=== PATIENT | male | born 1950 | race Caucasian/White ===

== ENCOUNTER 2018-11-16 16:40 | Emergency (ER) | payer MEDICAID ==
[~2018-11-16] VITALS: Ht 170.2 cm; Wt 76.0 kg
[2018-11-16 17:35] LABS: EOSINOPHILS % 1.7 % (0.0-5.0); HEMATOCRIT. 44.1 % (42.0-52.0); HEMOGLOBIN. 14.8 g/dL (14.0-18.0); LYMPHOCYTES % 34.6 % (20.0-50.0); MEAN CORPUSCULAR HEMOGLOBIN 30.6 pg (28.0-32.0); MEAN CORPUSCULAR VOLUME 91.1 fL (80.0-94.0); MEAN PLATELET VOLUME 11.2 fl (7.4-10.4); NEUTROPHILS % 56.7 % (40.0-76.0); PLATELET 74 x1000/uL (130-400); RED BLOOD CELL COUNT 4.84 mill/uL (4.7-6.1); RED CELL DISTRIBUTION WIDTH 13.8 % (11.6-14.6)
[2018-11-16 17:40] LABS: CHLORIDE 101 mEq/L (98-107)
[2018-11-16 17:50] LABS: BETA HYDROXYBUTYRATE 0.1 mMol/L (0.0-0.3)
[2018-11-16 18:01] LABS: PLATELET ESTIMATE DECREASED
[2018-11-16] MEDS ORDERED: SODIUM CHLORIDE 0.9% 1,000 ML IV ONE (19:38)
[2018-11-16 22:00] VITALS: BP 154/82
== END 2018-11-16 22:27 | disposition home or self-care (01) ==
LOC: ER 16:40
DX: E11.65 Type 2 diabetes mellitus with hyperglycemia (principal); I10 Essential (primary) hypertension
CPT/HCPCS: 36415; 80053; 82010; 82962; 83690; 85025; 96360; 99283; J7030

== ENCOUNTER 2021-05-03 10:53 | Inpatient (IN) | payer MEDICAID ==
[~2021-05-03] VITALS: Ht 144.8 cm; Wt 67.2 kg
[~2021-05-03 10:53] MED LIST: DILT-26 MT; INSU100I28 SQ; METF-414 MT
[2021-05-03 11:49] LABS: BASOPHILS % 0.6 % (0.0-2.0); EOSINOPHILS % 0.9 % (0.0-5.0); HEMATOCRIT. 38.7 % (42.0-52.0); HEMOGLOBIN. 13.1 g/dL (14.0-18.0); LYMPHOCYTES % 15.9 % (20.0-50.0); MEAN CORPUSCULAR HEMOGLOBIN 30.1 pg (28.0-32.0); MEAN CORPUSCULAR VOLUME 89.3 fL (80.0-94.0); MEAN PLATELET VOLUME 11.5 fl (7.4-10.4); MONOCYTES % 6.4 % (2.0-8.0); NEUTROPHILS % 76.2 % (40.0-76.0); PLATELET 95 x1000/uL (130-400); RED BLOOD CELL COUNT 4.33 mill/uL (4.7-6.1); RED CELL DISTRIBUTION WIDTH 12.9 % (11.6-14.6)
[2021-05-03 11:57] LABS: CHLORIDE 102 mEq/L (98-107)
[2021-05-03] MEDS ORDERED: DEXTROSE 50% WATER 50ML SYRINGE IV PRN (17:45)
[2021-05-03] MEDS: INSULIN LISPRO 100 UNITS/ML SUBCUT SCH ×3 (18:20→20:46)
[2021-05-03] MEDS: DILTIAZEM HCL 30MG TABLET PO SCH (19:11)
[2021-05-03] MEDS: BLOOD SUGAR DIAGNOSTIC STRIP TEST SCH (20:44)
[2021-05-03 22:30] VITALS: BP 105/69
[2021-05-04] VITALS: BP 117/74
[2021-05-04 04:00] VITALS: BP 122/71
[2021-05-04] MEDS ORDERED: ASPI-1497 MT (04:36)
[2021-05-04] MEDS ORDERED: ATOR10TA69 MT (04:37)
[2021-05-04] MEDS ORDERED: APIX5TAB MT (04:38)
[2021-05-04] MEDS ORDERED: INFLUENZA VACCINE 05/PF 0.5 ML SYRINGE IM ONE (06:00)
[2021-05-04] MEDS ORDERED: *PATIENT'S OWN MEDICATION STORAGE XX SCH (06:15)
[2021-05-04] MEDS: DILTIAZEM HCL 30MG TABLET PO SCH ×5 (06:16→21:22)
[2021-05-04] MEDS: BLOOD SUGAR DIAGNOSTIC STRIP TEST SCH ×4 (06:22→21:23)
[2021-05-04] MEDS ORDERED: PNEUMOCOCCAL 23-VAL P-SAC VAC 0.5 ML IM ONE (07:00)
[2021-05-04] MEDS: INSULIN LISPRO 100 UNITS/ML SUBCUT SCH ×5 (07:50→21:25)
[2021-05-04 08:00] VITALS: BP 114/64
[2021-05-04] MEDS ORDERED: ACETAMINOPHEN 325MG TABLET PO PRN (10:00)
[2021-05-04] MEDS ORDERED: DIPHENHYDRAMINE 50MG/ML VIAL IV PRN (10:00)
[2021-05-04] MEDS ORDERED: CLONIDINE 0.1MG TABLET PO PRN (10:00)
[2021-05-04] MEDS ORDERED: ENOXAPARIN 60MG/0.6ML SYR SUBCUT SCH (10:00)
[2021-05-04] MEDS ORDERED: ONDANSETRON HCL 4MG/2ML INJ IV PRN (10:00)
[2021-05-04] MEDS ORDERED: IPRATROPIUM/ALBUTEROL 0.5-3(2.5)MG/3ML NEB HHN PRN (10:00)
[2021-05-04 12:00] VITALS: BP 102/64
[2021-05-04 16:00] VITALS: BP 110/65
[2021-05-04 18:24] LABS: CLARITY URINE CLEAR (CLEAR); COLOR URINE YELLOW (YELLOW); KETONES URINE NEGATIVE (NEGATIVE); LEUKOCYTE ESTERASE URINE 1+ (NEGATIVE); NITRITE URINE NEGATIVE (NEGATIVE); OCCULT BLOOD URINE NEGATIVE (NEGATIVE); PROTEIN URINE TRACE (NEGATIVE); SPECIFIC GRAVITY URINE 1.021 (1.005-1.030)
[2021-05-04 18:35] LABS: *AMPHETAMINES SCREEN URINE NEGATIVE (NEGATIVE)
[2021-05-04 18:36] LABS: *BARBITURATES SCREEN URINE NEGATIVE (NEGATIVE); *COCAINE SCREEN URINE NEGATIVE (NEGATIVE); CANNABINOID URINE SCREEN NEGATIVE (NEGATIVE); METHADONE URINE SCREEN NEGATIVE (NEGATIVE); OPIATES URINE SCREEN NEGATIVE (NEGATIVE); PHENCYCLIDINE URINE SCREEN NEGATIVE (NEGATIVE)
[2021-05-04 18:47] LABS: *BENZODIAZEPINES SCREEN URINE NEGATIVE (NEGATIVE)
[2021-05-04 20:00] VITALS: BP 128/78
[2021-05-05] VITALS (7 sets, daily range): BP systolic 97–129; BP diastolic 49–69
[2021-05-05] MEDS: DILTIAZEM HCL 30MG TABLET PO SCH ×3 (05:13→22:00)
[2021-05-05] MEDS: BLOOD SUGAR DIAGNOSTIC STRIP TEST SCH ×4 (07:20→21:00)
[2021-05-05] MEDS: INSULIN LISPRO 100 UNITS/ML SUBCUT SCH ×5 (07:42→22:17)
[2021-05-05 07:44] LABS: BASOPHILS % 1.3 % (0.0-2.0); EOSINOPHILS % 2.3 % (0.0-5.0); HEMATOCRIT. 40.3 % (42.0-52.0); HEMOGLOBIN. 13.5 g/dL (14.0-18.0); LYMPHOCYTES % 30.3 % (20.0-50.0); MEAN CORPUSCULAR HEMOGLOBIN 29.6 pg (28.0-32.0); MEAN CORPUSCULAR VOLUME 88.2 fL (80.0-94.0); MONOCYTES % 7.3 % (2.0-8.0); NEUTROPHILS % 58.8 % (40.0-76.0); PLATELET 97 x1000/uL (130-400); PROTHROMBIN TIME 11.1 sec (9.6-11.0); RED BLOOD CELL COUNT 4.57 mill/uL (4.7-6.1)
[2021-05-05 07:45] LABS: CHLORIDE 105 mEq/L (98-107)
[2021-05-05 07:54] LABS: LDL CHOLESTEROL 78 mg/dL (5-100)
[2021-05-05 07:55] LABS: HDL CHOLESTEROL 52 mg/dL (40-59)
[2021-05-05] MEDS ORDERED: LIDOCAINE HCL 1% 20ML VIAL (Pyxis) INJ ONE (08:52)
[2021-05-05] MEDS ORDERED: HEPARIN 1000 UNITS/ML 10ML ONE (08:52)
[2021-05-05] MEDS ORDERED: IOHEXOL-300 100 ML BOTTLE ONE (08:53)
[2021-05-05] MEDS ORDERED: IODIXANOL 320MG/ML 100 ML BOTTLE IV ONE (08:53)
[2021-05-05] MEDS ORDERED: MIDAZOLAM HCL 2 MG/2 ML VIAL ONE ×2 (08:59→10:47)
[2021-05-05] MEDS ORDERED: FENTANYL CITRATE/PF 50MCG/ML 2ML VIAL ONE (09:00)
[2021-05-05] MEDS ORDERED: ATROPINE SULFATE 1MG/10ML SYR IV PRN (10:00)
[2021-05-05] MEDS ORDERED: ACETAMINOPHEN 325MG TABLET PO PRN (10:00)
[2021-05-05] MEDS ORDERED: NICARDIPINE 100MCG/ML 10ML VIAL (CATH LAB) IV ONE (10:13)
[2021-05-05] MEDS ORDERED: HEPARIN SODIUM 1,000 UNIT/1ML VIAL IV ONE (10:13)
[2021-05-05] MEDS ORDERED: PHENYLEPHRINE 100MCG/ML 10ML VIAL (CATH LAB) IV ONE (10:13)
[2021-05-05] MEDS ORDERED: NITROGLYCERIN 50MCG/ML 10ML VIAL (CATH LAB) IV ONE (10:13)
[2021-05-05] MEDS ORDERED: FENTANYL CITRATE/PF 50MCG/ML 5ML VIAL ONE (10:48)
[2021-05-05] MEDS ORDERED: CHLORHEXIDINE GLUCONATE 4% EXTERNAL USE TOP SCH ×2 (15:00→21:00)
[2021-05-05] MEDS ORDERED: BISACODYL 10MG SUPP PR PRN (21:00)
[2021-05-05] MEDS ORDERED: ASCORBIC ACID 500 MG TABLET PO SCH (21:00)
[2021-05-05] MEDS ORDERED: DOCUSATE SODIUM 100MG CAPSULE PO SCH (21:00)
[2021-05-05] MEDS: ALLOPURINOL 300 MG TABLET PO SCH (22:16)
[2021-05-06] VITALS (53 sets, daily range): BP systolic 92–144; BP diastolic 40–106
[2021-05-06 03:07] LABS: CLARITY URINE CLEAR (CLEAR); COLOR URINE YELLOW (YELLOW); KETONES URINE NEGATIVE (NEGATIVE); LEUKOCYTE ESTERASE URINE 2+ (NEGATIVE); NITRITE URINE NEGATIVE (NEGATIVE); OCCULT BLOOD URINE NEGATIVE (NEGATIVE); PROTEIN URINE NEGATIVE (NEGATIVE); SPECIFIC GRAVITY URINE 1.012 (1.005-1.030); UROBILINOGEN URINE 0.2 E.U./dL (0.2-1.0)
[2021-05-06] MEDS: ALLOPURINOL 300 MG TABLET PO SCH (05:30)
[2021-05-06] MEDS ORDERED: SKIN ADHESIVE 0.7 GM EA TOP ONE (05:34)
[2021-05-06] MEDS ORDERED: POLYMYXIN B SULFATE 500000 UNITS/VIAL ONE (05:35)
[2021-05-06] MEDS ORDERED: THROMBIN (BOVINE) 5000 UNITS/VIAL TOP ONE (05:35)
[2021-05-06] MEDS ORDERED: HEPARIN 1000 UNITS/ML 10ML ONE ×3 (05:36→14:15)
[2021-05-06] MEDS ORDERED: DOPAMINE 400MG/250ML PREMIX 250 ML IV ONE ×2 (05:47→05:48)
[2021-05-06] MEDS: DILTIAZEM HCL 30MG TABLET PO SCH (05:56)
[2021-05-06] MEDS ORDERED: INSULIN REGULAR (DRIP) 100 UNITS in SODIUM CHLORIDE 0.9% 99 ML IV PRN (06:00)
[2021-05-06] MEDS ORDERED: AMINOCAPROIC ACID 5,000 MG in SODIUM CHLORIDE 0.9% 230 ML IV PRN (06:00)
[2021-05-06] MEDS ORDERED: EPINEPHRINE 5 MG in DEXT 5% WATER 245 ML IV PRN (06:00)
[2021-05-06] MEDS ORDERED: DOBUTAMINE 250 MG PREMIX 250 ML IV PRN (06:00)
[2021-05-06] MEDS ORDERED: NOREPINEPHRINE 8 MG in DEXT 5% WATER 242 ML IV PRN (06:00)
[2021-05-06] MEDS ORDERED: DOPAMINE 400 MG PREMIX 250 ML IV PRN (06:00)
[2021-05-06] MEDS ORDERED: PAPAVERINE HCL 180MG in SODIUM CHLORIDE 0.9% 24ML IV PRN (06:00)
[2021-05-06] MEDS ORDERED: DEL NIDO ELECTROLYTE-S(PH 7.4) 1,000 ML IV PRN ×2 (06:00)
[2021-05-06] MEDS ORDERED: CEFAZOLIN 2,000 MG in DEXT 5% WATER 100 ML IV PRN (06:00)
[2021-05-06] MEDS ORDERED: NICARDIPINE 40 MG/200 ML PREMIX 200 ML IV PRN (06:00)
[2021-05-06 06:28] LABS: BASOPHILS % 0.9 % (0.0-2.0); EOSINOPHILS % 1.5 % (0.0-5.0); HEMATOCRIT. 37.9 % (42.0-52.0); HEMOGLOBIN. 12.8 g/dL (14.0-18.0); LYMPHOCYTES % 28.2 % (20.0-50.0); MEAN CORPUSCULAR HEMOGLOBIN 29.7 pg (28.0-32.0); MEAN CORPUSCULAR VOLUME 88.4 fL (80.0-94.0); MEAN PLATELET VOLUME 12.2 fl (7.4-10.4); MONOCYTES % 8.3 % (2.0-8.0); NEUTROPHILS % 61.1 % (40.0-76.0); PLATELET 97 x1000/uL (130-400); RED BLOOD CELL COUNT 4.29 mill/uL (4.7-6.1); RED CELL DISTRIBUTION WIDTH 12.9 % (11.6-14.6)
[2021-05-06 06:35] LABS: CHLORIDE 103 mEq/L (98-107)
[2021-05-06] MEDS ORDERED: VANCOMYCIN HCL 1 GM/VIAL ONE (06:46)
[2021-05-06] MEDS ORDERED: HYDROMORPHONE HCL/PF 2MG/ML (OR) ONE (07:16)
[2021-05-06] MEDS ORDERED: DEXAMETHASONE 4MG/ML 1ML VIAL ONE (07:19)
[2021-05-06] MEDS ORDERED: EPINEPHRINE 0.1MG/ML (1:10,000) 10ML SYR ONE (07:55)
[2021-05-06] MEDS ORDERED: CALCIUM CHLORIDE 1GM/10ML SYR IV ONE ×2 (07:55→14:15)
[2021-05-06] MEDS ORDERED: AMINOCAPROIC ACID 250 MG/ML 20ML VIAL ONE ×2 (07:56→14:15)
[2021-05-06] MEDS ORDERED: SODIUM CHLORIDE 0.9% 10ML VIAL ONE (08:37)
[2021-05-06] MEDS ORDERED: SODIUM BICARBONATE 8.4% 1 MEQ/ML 50ML SYR IV ONE ×2 (08:56→14:15)
[2021-05-06] MEDS ORDERED: ROCURONIUM BROMIDE 10MG/ML VIAL 5ML IV ONE (09:07)
[2021-05-06] MEDS ORDERED: AMIODARONE HCL 900 MG in DEXT 5% WATER 500 ML IV PRN (09:15)
[2021-05-06] MEDS ORDERED: PROTAMINE SULFATE 10MG/ML VIAL 25ML IV ONE (10:04)
[2021-05-06] MEDS ORDERED: PROPOFOL 10MG/ML 100ML 100 ML IV ONE (10:08)
[2021-05-06] MEDS ORDERED: DEXMEDETOMIDINE 400 MCG/100 ML 100 ML IV ONE (10:08)
[2021-05-06] MEDS ORDERED: ALBUMIN HUMAN 25GM/100ML (25%) IV ONE ×2 (10:20→14:15)
[2021-05-06] MEDS ORDERED: GLYCOPYRROLATE 0.2 MG/ML 2ML VIAL ONE (10:23)
[2021-05-06] MEDS ORDERED: NEOSTIGMINE METHYLSULFATE 1MG/ML 10 ML VIAL ONE (10:23)
[2021-05-06] MEDS ORDERED: OXYCODONE HCL/ACETAMINOPHEN 5/325MG TABLET PO PRN ×2 (10:45)
[2021-05-06] MEDS ORDERED: MAGNESIUM 1 G PREMIX 100 ML IV PRN (10:45)
[2021-05-06] MEDS ORDERED: CALCIUM CHLORIDE 3,000 MG in DEXT 5% WATER 250 ML IV PRN (10:45)
[2021-05-06] MEDS ORDERED: KCL 10MEQ/50ML PREMIX 200 ML IV PRN (10:45)
[2021-05-06] MEDS ORDERED: DOPAMINE 400MG/250ML PREMIX 250 ML IV SCH (10:45)
[2021-05-06] MEDS ORDERED: ALBUMIN HUMAN 12.5G/250ML (5%) IV PRN (10:45)
[2021-05-06] MEDS ORDERED: ONDANSETRON HCL 4MG/2ML INJ IV PRN (10:45)
[2021-05-06] MEDS ORDERED: DEXTROSE 50% WATER 50ML SYRINGE IV PRN ×2 (10:45)
[2021-05-06] MEDS ORDERED: MORPHINE SULFATE 2 MG/ML CPJ (NOT FOR IM USE) IV PRN (10:45)
[2021-05-06] MEDS ORDERED: MAGNESIUM SULFATE 3 GM in DEXT 5% WATER 100 ML IV PRN (10:45)
[2021-05-06] MEDS ORDERED: KETOROLAC 15MG/ML VIAL IV PRN (10:45)
[2021-05-06] MEDS ORDERED: ALBUMIN HUMAN 25GM/100ML (25%) IV PRN (10:45)
[2021-05-06] MEDS ORDERED: ACETAMINOPHEN 325MG TABLET PO PRN (10:45)
[2021-05-06] MEDS ORDERED: KCL 10MEQ/50ML PREMIX 150 ML IV PRN (10:45)
[2021-05-06] MEDS ORDERED: INSULIN REGULAR (DRIP) 100 UNITS in SODIUM CHLORIDE 0.9% 100 ML IV SCH (10:45)
[2021-05-06] MEDS ORDERED: KETOROLAC 30MG/ML VIAL ONE (10:46)
[2021-05-06] MEDS ORDERED: NALOXONE HCL 0.4 MG/ML 1ML VIAL ONE (11:01)
[2021-05-06 11:18] LABS: BG BASE EXCESS 0.6 mmol/L (-2.0-2.0); BG DEOXYHEMOGLOBIN 1.3 % (0.0-5.0); BG FRACTION INSPIRED OXYGEN 100; BG METHEMOGLOBIN 0.7 % (0.0-1.5); BG OXYGEN SATURATION 98.7 % (92.0-98.5); BG PCO2 68.4 mmHg (35.0-45.0); BG PH 7.245 (7.350-7.450); BG PO2 332.5 mmHg (75.0-100.0); BG SAMPLE SITE ALINE; BG TOTAL HEMOGLOBIN 10.5 g/dL (12.0-18.0); BG VENT MODE VENT - CPAP
[2021-05-06 11:27] LABS: BASOPHILS % 0.1 % (0.0-2.0); EOSINOPHILS % 0.3 % (0.0-5.0); HEMATOCRIT. 27.7 % (42.0-52.0); HEMOGLOBIN. 9.3 g/dL (14.0-18.0); LYMPHOCYTES % 8.2 % (20.0-50.0); MEAN PLATELET VOLUME 11.5 fl (7.4-10.4); MONOCYTES % 7.3 % (2.0-8.0); NEUTROPHILS % 84.1 % (40.0-76.0); PLATELET 56 x1000/uL (130-400); RED BLOOD CELL COUNT 3.11 mill/uL (4.7-6.1); RED CELL DISTRIBUTION WIDTH 12.7 % (11.6-14.6)
[2021-05-06] MEDS: DEXT 5%/0.45% NACL 1000ML 1,000 ML IV SCH (11:29)
[2021-05-06 11:34] LABS: CHLORIDE 106 mEq/L (98-107)
[2021-05-06] MEDS: FAMOTIDINE 20MG/2ML VIAL IV SCH (11:45)
[2021-05-06] MEDS: BLOOD SUGAR DIAGNOSTIC STRIP TEST SCH ×12 (12:05→22:38)
[2021-05-06 12:28] LABS: BG CARBOXYHEMOGLOBIN 0.2 % (0.5-1.5); BG DEOXYHEMOGLOBIN 4.1 % (0.0-5.0); BG FRACTION INSPIRED OXYGEN 44; BG HCO3 ACT 28.3 mmol/L (22.0-26.0); BG METHEMOGLOBIN 0.9 % (0.0-1.5); BG OXYGEN SATURATION 95.9 % (92.0-98.5); BG OXYHEMOGLOBIN 94.8 % (94.0-97.0); BG PCO2 66.6 mmHg (35.0-45.0); BG PH 7.246 (7.350-7.450); BG PO2 102.2 mmHg (75.0-100.0); BG SAMPLE SITE ALINE; BG TOTAL HEMOGLOBIN 10.6 g/dL (12.0-18.0); BG VENT MODE MASK - SIMPLE
[2021-05-06] MEDS ORDERED: ALBUMIN HUMAN 25GM/100ML (25%) IV NR (13:00)
[2021-05-06] MEDS: IPRATROPIUM/ALBUTEROL 0.5-3(2.5)MG/3ML NEB HHN SCH ×3 (13:32→20:20)
[2021-05-06] MEDS ORDERED: MAGNESIUM SULFATE 5GM/10ML VIAL IV ONE (14:15)
[2021-05-06] MEDS ORDERED: PHENYLEPHRINE HCL 10 MG/ML 1ML (IV VIAL) IV ONE (14:15)
[2021-05-06] MEDS ORDERED: LIDOCAINE HCL 2% 5ML SYRINGE IV ONE (14:15)
[2021-05-06] MEDS ORDERED: POTASSIUM CHLORIDE 40MEQ/20ML INJ IV ONE (14:15)
[2021-05-06] MEDS: ASPIRIN 81MG TABLET PO SCH (14:27)
[2021-05-06] MEDS ORDERED: ALBUMIN HUMAN 25GM/500ML (5%) IV NR (15:30)
[2021-05-06] MEDS: CEFAZOLIN 1000MG PREMIX 50 ML IV SCH ×2 (16:01→22:24)
[2021-05-06 16:58] LABS: BG BASE EXCESS 0.6 mmol/L (-2.0-2.0); BG CARBOXYHEMOGLOBIN 0.4 % (0.5-1.5); BG DEOXYHEMOGLOBIN 8.4 % (0.0-5.0); BG FRACTION INSPIRED OXYGEN 44; BG METHEMOGLOBIN 0.2 % (0.0-1.5); BG OXYGEN SATURATION 91.5 % (92.0-98.5); BG PCO2 52.1 mmHg (35.0-45.0); BG PH 7.332 (7.350-7.450); BG PO2 66.5 mmHg (75.0-100.0); BG SAMPLE SITE ALINE; BG TOTAL HEMOGLOBIN 9.8 g/dL (12.0-18.0); BG VENT MODE NASAL CANNULA
[2021-05-06] MEDS: DOCUSATE SODIUM 100MG CAPSULE PO SCH (17:00)
[2021-05-06] MEDS: METOPROLOL TARTRATE 25MG TABLET PO SCH (17:00)
[2021-05-06] MEDS ORDERED: BACITRACIN 15GM TUBE TOP SCH (17:00)
[2021-05-06] MEDS: AMIODARONE HCL 200 MG TABLET PO SCH (17:00)
[2021-05-06 17:38] LABS: CHLORIDE 110 mEq/L (98-107); HEMOGLOBIN. 9.5 g/dL (14.0-18.0); MEAN CORPUSCULAR HEMOGLOBIN 29.6 pg (28.0-32.0); MEAN CORPUSCULAR VOLUME 90.2 fL (80.0-94.0); PLATELET 56 x1000/uL (130-400); RED BLOOD CELL COUNT 3.21 mill/uL (4.7-6.1); RED CELL DISTRIBUTION WIDTH 13.2 % (11.6-14.6)
[2021-05-06 17:43] LABS: PHOSPHORUS 1.7 mg/dL (2.5-4.9)
[2021-05-06 18:22] LABS: PLATELET ESTIMATE DECREASED
[2021-05-06] MEDS: TAMSULOSIN HCL 0.4MG SR CAPSULE PO SCH (20:54)
[2021-05-06] MEDS: ATORVASTATIN CALCIUM 40MG TABLET PO SCH (20:54)
[2021-05-06] MEDS: FINASTERIDE 5MG TABLET PO SCH (20:55)
[2021-05-07] VITALS (96 sets, daily range): BP systolic 64–149; BP diastolic 32–108
[2021-05-07] MEDS: IPRATROPIUM/ALBUTEROL 0.5-3(2.5)MG/3ML NEB HHN SCH ×6 (00:29→20:20)
[2021-05-07 00:39] LABS: HEMATOCRIT. 30.4 % (42.0-52.0); HEMOGLOBIN. 10.3 g/dL (14.0-18.0); MEAN CORPUSCULAR HEMOGLOBIN 30.1 pg (28.0-32.0); MEAN CORPUSCULAR VOLUME 89.4 fL (80.0-94.0); MEAN PLATELET VOLUME 10.5 fl (7.4-10.4); PLATELET 51 x1000/uL (130-400); RED BLOOD CELL COUNT 3.41 mill/uL (4.7-6.1); RED CELL DISTRIBUTION WIDTH 13.4 % (11.6-14.6)
[2021-05-07 01:03] LABS: CHLORIDE 110 mEq/L (98-107)
[2021-05-07] MEDS: BLOOD SUGAR DIAGNOSTIC STRIP TEST SCH ×19 (01:53→21:21)
[2021-05-07] MEDS: MAGNESIUM 2 G PREMIX 50 ML IV PRN (04:02)
[2021-05-07 06:57] LABS: BASOPHILS % 0.1 % (0.0-2.0); HEMATOCRIT. 30.3 % (42.0-52.0); HEMOGLOBIN. 10.2 g/dL (14.0-18.0); LYMPHOCYTES % 14.2 % (20.0-50.0); MEAN CORPUSCULAR HEMOGLOBIN 29.9 pg (28.0-32.0); MEAN CORPUSCULAR VOLUME 89.2 fL (80.0-94.0); MEAN PLATELET VOLUME 12.1 fl (7.4-10.4); MONOCYTES % 10.6 % (2.0-8.0); NEUTROPHILS % 75.1 % (40.0-76.0); PLATELET 56 x1000/uL (130-400); RED CELL DISTRIBUTION WIDTH 13.2 % (11.6-14.6)
[2021-05-07 07:00] LABS: CHLORIDE 108 mEq/L (98-107)
[2021-05-07 07:04] LABS: PLATELET ESTIMATE DECREASED
[2021-05-07] MEDS: CEFAZOLIN 1000MG PREMIX 50 ML IV SCH (07:05)
[2021-05-07] MEDS: AMIODARONE HCL 200 MG TABLET PO SCH ×2 (09:15→16:11)
[2021-05-07] MEDS: FAMOTIDINE 20MG/2ML VIAL IV SCH (09:15)
[2021-05-07] MEDS: ASPIRIN 81MG TABLET PO SCH (09:15)
[2021-05-07] MEDS: DOCUSATE SODIUM 100MG CAPSULE PO SCH ×2 (09:15→16:11)
[2021-05-07] MEDS: METOPROLOL TARTRATE 25MG TABLET PO SCH ×2 (09:35→21:20)
[2021-05-07] MEDS: KCL 10MEQ/50ML PREMIX 100 ML IV PRN (10:25)
[2021-05-07] MEDS: DEXT 5%/0.45% NACL 1000ML 1,000 ML IV SCH (11:16)
[2021-05-07] MEDS ORDERED: FUROSEMIDE 40MG/4ML VIAL IVP NR (13:15)
[2021-05-07] MEDS ORDERED: ALBUMIN HUMAN 25GM/500ML (5%) IV NR (14:30)
[2021-05-07] MEDS ORDERED: DEXTROSE 50% WATER 50ML SYRINGE IV PRN (17:30)
[2021-05-07] MEDS: INSULIN LISPRO 100 UNITS/ML SUBCUT SCH ×2 (17:49→21:26)
[2021-05-07] MEDS: ATORVASTATIN CALCIUM 40MG TABLET PO SCH (21:19)
[2021-05-07] MEDS: TAMSULOSIN HCL 0.4MG SR CAPSULE PO SCH (21:20)
[2021-05-07] MEDS: FINASTERIDE 5MG TABLET PO SCH (21:21)
[2021-05-07] MEDS: GUAIFENESIN 600MG ER TABLET PO SCH (21:21)
[2021-05-08] VITALS (57 sets, daily range): BP systolic 103–139; BP diastolic 19–85
[2021-05-08] MEDS: IPRATROPIUM/ALBUTEROL 0.5-3(2.5)MG/3ML NEB HHN SCH ×6 (00:26→20:48)
[2021-05-08 06:50] LABS: CHLORIDE 104 mEq/L (98-107)
[2021-05-08 06:56] LABS: BASOPHILS % 0.5 % (0.0-2.0); EOSINOPHILS % 0.1 % (0.0-5.0); HEMATOCRIT. 29.3 % (42.0-52.0); HEMOGLOBIN. 9.8 g/dL (14.0-18.0); LYMPHOCYTES % 16.3 % (20.0-50.0); MEAN CORPUSCULAR HEMOGLOBIN 29.9 pg (28.0-32.0); MEAN CORPUSCULAR VOLUME 89.7 fL (80.0-94.0); MONOCYTES % 10.9 % (2.0-8.0); NEUTROPHILS % 72.2 % (40.0-76.0); RED BLOOD CELL COUNT 3.27 mill/uL (4.7-6.1); RED CELL DISTRIBUTION WIDTH 13.4 % (11.6-14.6)
[2021-05-08] MEDS ORDERED: OXYCODONE HCL/ACETAMINOPHEN 5/325MG TABLET PO PRN (07:30)
[2021-05-08] MEDS ORDERED: TRAMADOL HCL/ACETAMINOPHEN 37.5/325MG TABLET PO PRN (07:30)
[2021-05-08] MEDS: BLOOD SUGAR DIAGNOSTIC STRIP TEST SCH ×3 (07:50→20:21)
[2021-05-08] MEDS ORDERED: ASPIRIN 81MG TABLET PO SCH (09:00)
[2021-05-08] MEDS ORDERED: METOPROLOL TARTRATE 25MG TABLET PO SCH (09:00)
[2021-05-08] MEDS: ASPIRIN 81MG TABLET PO SCH (09:40)
[2021-05-08] MEDS: AMIODARONE HCL 200 MG TABLET PO SCH ×2 (09:40→16:25)
[2021-05-08] MEDS: FUROSEMIDE 40MG/4ML VIAL IVP SCH (09:41)
[2021-05-08] MEDS: DOCUSATE SODIUM 250MG CAPSULE PO SCH ×2 (09:41→16:25)
[2021-05-08] MEDS: FAMOTIDINE 20MG TABLET PO SCH ×2 (09:41→20:21)
[2021-05-08] MEDS: METOPROLOL TARTRATE 25MG TABLET PO SCH ×2 (09:41→20:21)
[2021-05-08] MEDS: INSULIN LISPRO 100 UNITS/ML SUBCUT SCH ×4 (10:29→20:31)
[2021-05-08] MEDS: GUAIFENESIN 600MG ER TABLET PO SCH ×2 (11:04→20:20)
[2021-05-08] MEDS: MAGNESIUM 2 G PREMIX 50 ML IV PRN (14:47)
[2021-05-08] MEDS: ACETYLCYSTEINE 100MG/ML 10% VIAL 4ML INH SCH (16:22)
[2021-05-08] MEDS: TAMSULOSIN HCL 0.4MG SR CAPSULE PO SCH (20:21)
[2021-05-08] MEDS: FINASTERIDE 5MG TABLET PO SCH (20:21)
[2021-05-08] MEDS: ATORVASTATIN CALCIUM 40MG TABLET PO SCH (20:21)
[2021-05-08] MEDS: INSULIN GLARGINE UD 100 UNITS/ML SYR SUBCUT SCH (20:22)
[2021-05-09] VITALS (12 sets, daily range): BP systolic 98–131; BP diastolic 38–58
[2021-05-09] MEDS: IPRATROPIUM/ALBUTEROL 0.5-3(2.5)MG/3ML NEB HHN SCH ×6 (00:29→20:24)
[2021-05-09] MEDS: ACETYLCYSTEINE 100MG/ML 10% VIAL 4ML INH SCH ×3 (00:30→11:45)
[2021-05-09 06:35] LABS: BASOPHILS % 0.4 % (0.0-2.0); EOSINOPHILS % 0.6 % (0.0-5.0); HEMATOCRIT. 28.2 % (42.0-52.0); HEMOGLOBIN. 9.5 g/dL (14.0-18.0); LYMPHOCYTES % 14.7 % (20.0-50.0); MEAN CORPUSCULAR VOLUME 88.6 fL (80.0-94.0); NEUTROPHILS % 73.3 % (40.0-76.0); RED BLOOD CELL COUNT 3.18 mill/uL (4.7-6.1); RED CELL DISTRIBUTION WIDTH 13.2 % (11.6-14.6)
[2021-05-09] MEDS: BLOOD SUGAR DIAGNOSTIC STRIP TEST SCH ×4 (06:43→20:46)
[2021-05-09 06:45] LABS: CHLORIDE 103 mEq/L (98-107)
[2021-05-09 07:57] LABS: MEAN PLATELET VOLUME 12.1 fl (7.4-10.4); PLATELET 37 x1000/uL (130-400)
[2021-05-09 07:58] LABS: PLATELET ESTIMATE MARKEDLY DECREASED
[2021-05-09] MEDS: FUROSEMIDE 40MG/4ML VIAL IVP SCH (08:25)
[2021-05-09] MEDS: ASPIRIN 81MG TABLET PO SCH (08:25)
[2021-05-09] MEDS: GUAIFENESIN 600MG ER TABLET PO SCH ×2 (08:25→20:42)
[2021-05-09] MEDS: AMIODARONE HCL 200 MG TABLET PO SCH ×2 (08:25→17:48)
[2021-05-09] MEDS: DOCUSATE SODIUM 250MG CAPSULE PO SCH ×2 (08:25→17:48)
[2021-05-09] MEDS: METOPROLOL TARTRATE 25MG TABLET PO SCH ×2 (08:26→20:42)
[2021-05-09] MEDS: FAMOTIDINE 20MG TABLET PO SCH ×2 (08:27→20:43)
[2021-05-09] MEDS: INSULIN LISPRO 100 UNITS/ML SUBCUT SCH ×4 (08:30→21:12)
[2021-05-09] MEDS: INSULIN GLARGINE UD 100 UNITS/ML SYR SUBCUT SCH ×2 (12:13→21:12)
[2021-05-09] MEDS ORDERED: MAGNESIUM 2 G PREMIX 50 ML IV SCH (14:00)
[2021-05-09] MEDS: MINERAL OIL 30ML BOTTLE PO SCH ×2 (14:35→23:00)
[2021-05-09] MEDS: FINASTERIDE 5MG TABLET PO SCH (20:41)
[2021-05-09] MEDS: TAMSULOSIN HCL 0.4MG SR CAPSULE PO SCH (20:41)
[2021-05-09] MEDS: ATORVASTATIN CALCIUM 40MG TABLET PO SCH (20:42)
[2021-05-10] VITALS (14 sets, daily range): BP systolic 104–137; BP diastolic 43–65
[2021-05-10] MEDS: IPRATROPIUM/ALBUTEROL 0.5-3(2.5)MG/3ML NEB HHN SCH ×5 (01:12→21:23)
[2021-05-10] MEDS: BLOOD SUGAR DIAGNOSTIC STRIP TEST SCH ×4 (05:47→21:41)
[2021-05-10 07:09] LABS: BASOPHILS % 0.3 % (0.0-2.0); EOSINOPHILS % 1.6 % (0.0-5.0); HEMATOCRIT. 27.4 % (42.0-52.0); HEMOGLOBIN. 9.3 g/dL (14.0-18.0); LYMPHOCYTES % 18.8 % (20.0-50.0); MEAN CORPUSCULAR VOLUME 89.1 fL (80.0-94.0); MEAN PLATELET VOLUME 12.1 fl (7.4-10.4); NEUTROPHILS % 68.3 % (40.0-76.0); RED BLOOD CELL COUNT 3.08 mill/uL (4.7-6.1)
[2021-05-10] MEDS: INSULIN LISPRO 100 UNITS/ML SUBCUT SCH ×4 (07:20→21:00)
[2021-05-10 07:27] LABS: CHLORIDE 104 mEq/L (98-107)
[2021-05-10 07:30] LABS: PLATELET 41 x1000/uL (130-400)
[2021-05-10] MEDS: MINERAL OIL 30ML BOTTLE PO SCH ×2 (08:35→21:00)
[2021-05-10] MEDS: AMIODARONE HCL 200 MG TABLET PO SCH ×2 (08:36→17:18)
[2021-05-10] MEDS: FAMOTIDINE 20MG TABLET PO SCH ×2 (08:36→21:37)
[2021-05-10] MEDS: ASPIRIN 81MG TABLET PO SCH (08:36)
[2021-05-10] MEDS: FUROSEMIDE 40MG/4ML VIAL IVP SCH (08:36)
[2021-05-10] MEDS: GUAIFENESIN 600MG ER TABLET PO SCH ×2 (08:36→21:37)
[2021-05-10] MEDS: DOCUSATE SODIUM 250MG CAPSULE PO SCH ×2 (08:36→17:18)
[2021-05-10] MEDS: METOPROLOL TARTRATE 25MG TABLET PO SCH ×2 (08:37→21:37)
[2021-05-10] MEDS: INSULIN GLARGINE UD 100 UNITS/ML SYR SUBCUT SCH ×2 (10:35→21:45)
[2021-05-10] MEDS ORDERED: AMI2 PO (13:24)
[2021-05-10] MEDS ORDERED: FURO40TA5 MT (13:24)
[2021-05-10] MEDS ORDERED: TAMS-11 PO (13:24)
[2021-05-10] MEDS ORDERED: LIP40 PO (13:24)
[2021-05-10] MEDS ORDERED: METO25TA6 PO (13:24)
[2021-05-10] MEDS ORDERED: ASPI-1160 PO (13:24)
[2021-05-10] MEDS ORDERED: FINA5TAB11 PO (13:24)
[2021-05-10] MEDS ORDERED: FAMO20TA8 PO (13:24)
[2021-05-10] MEDS ORDERED: GUAI-453 MT (13:56)
[2021-05-10] MEDS: ATORVASTATIN CALCIUM 40MG TABLET PO SCH (21:37)
[2021-05-10] MEDS: FINASTERIDE 5MG TABLET PO SCH (21:37)
[2021-05-10] MEDS: TAMSULOSIN HCL 0.4MG SR CAPSULE PO SCH (21:44)
[2021-05-11] VITALS (11 sets, daily range): BP systolic 100–134; BP diastolic 32–66
[2021-05-11] MEDS: IPRATROPIUM/ALBUTEROL 0.5-3(2.5)MG/3ML NEB HHN SCH ×5 (01:27→16:26)
[2021-05-11] MEDS: BLOOD SUGAR DIAGNOSTIC STRIP TEST SCH ×3 (05:44→16:21)
[2021-05-11] MEDS: INSULIN LISPRO 100 UNITS/ML SUBCUT SCH ×3 (07:53→16:21)
[2021-05-11] MEDS: DOCUSATE SODIUM 250MG CAPSULE PO SCH ×2 (08:36→16:21)
[2021-05-11] MEDS: AMIODARONE HCL 200 MG TABLET PO SCH (08:36)
[2021-05-11] MEDS: FUROSEMIDE 40MG/4ML VIAL IVP SCH (08:36)
[2021-05-11] MEDS: GUAIFENESIN 600MG ER TABLET PO SCH (08:36)
[2021-05-11] MEDS: FAMOTIDINE 20MG TABLET PO SCH (08:36)
[2021-05-11] MEDS: ASPIRIN 81MG TABLET PO SCH (08:36)
[2021-05-11] MEDS: MINERAL OIL 30ML BOTTLE PO SCH (08:36)
[2021-05-11] MEDS: METOPROLOL TARTRATE 25MG TABLET PO SCH (08:37)
[2021-05-11 09:55] LABS: HEMATOCRIT 29.6 % (42.0-52.0); HEMOGLOBIN 9.9 g/dL (14.0-18.0); MEAN CORPUSCULAR HEMOGLOBIN 29.8 pg (28.0-32.0); MEAN CORPUSCULAR VOLUME 89.4 fL (80.0-94.0); PLATELET 62 x1000/uL (130-400); RED BLOOD CELL COUNT 3.31 mill/uL (4.7-6.1); RED CELL DISTRIBUTION WIDTH 13.2 % (11.6-14.6)
[2021-05-11 10:11] LABS: CHLORIDE 102 mEq/L (98-107)
[2021-05-11] MEDS ORDERED: HYDR-4001 MT (10:30)
[2021-05-11] MEDS: INSULIN GLARGINE UD 100 UNITS/ML SYR SUBCUT SCH (10:54)
[2021-05-11] MEDS ORDERED: POTASSIUM CHLORIDE 20MEQ/PACKET PO NR (12:15)
== END 2021-05-11 17:15 | disposition home health service (06) | DRG 163 ==
LOC: ER 10:53 → 6WST 12:44 → EDBEDREQ 12:48 → EDBEDREQTM 12:48 → ENRESERV 20:39 → CVICU 05-06 08:42 → 3WST 05-08 17:01
PROVIDERS: ADMIT Internal Medicine; ATTEND Internal Medicine
PROC: 4A023N7 Measurement of Cardiac Sampling and Pressure, Left Heart, Percutaneous Approach (ICD-10-PCS; 2021-05-05)
PROC: B211YZZ Fluoroscopy of Multiple Coronary Arteries using Other Contrast (ICD-10-PCS; 2021-05-05)
PROC: 02100Z9 Bypass Coronary Artery, One Artery from Left Internal Mammary, Open Approach (ICD-10-PCS; principal; 2021-05-06)
PROC: 02RF08Z Replacement of Aortic Valve with Zooplastic Tissue, Open Approach (ICD-10-PCS; 2021-05-06)
PROC: 5A1221Z Performance of Cardiac Output, Continuous (ICD-10-PCS; 2021-05-06)
PROC: 06BQ4ZZ Excision of Left Saphenous Vein, Percutaneous Endoscopic Approach (ICD-10-PCS; 2021-05-06)
DX: I35.0 Nonrheumatic aortic (valve) stenosis (principal); J96.01 Acute respiratory failure with hypoxia; D69.6 Thrombocytopenia, unspecified; I95.9 Hypotension, unspecified; D64.9 Anemia, unspecified; E11.9 Type 2 diabetes mellitus without complications; E78.5 Hyperlipidemia, unspecified; I25.10 Atherosclerotic heart disease of native coronary artery without angina pectoris; Z20.822 Contact with and (suspected) exposure to COVID-19; T41.45XA Adverse effect of unspecified anesthetic, initial encounter; Y92.238 Other place in hospital as the place of occurrence of the external cause; I10 Essential (primary) hypertension; I48.0 Paroxysmal atrial fibrillation; Z79.01 Long term (current) use of anticoagulants; Z79.4 Long term (current) use of insulin; Z79.82 Long term (current) use of aspirin; Z79.899 Other long term (current) drug therapy; Z79.84 Long term (current) use of oral hypoglycemic drugs
CPT/HCPCS: 36415; 36600; 71045; 76705; 80048; 80053; 80061; 80305; 81003; 82375; 82805; 82962; 83036; 83735; 83880; 84100; 84132; 84443; 84484; 85025; 85027; 85347; 86850; 86900; 86920; 87070; 87075; 87426; 88305; 90686; 90732; 93005; 93306; 93454; 93567; 93880; 93970; 94003; 94618; 94640; 94667; 97110; 97116; 97162; 97164; 97166; 97530; 97535; 99285; C1725; C1729; C1751; C1758; C1769; C1887; C1893; J0690; J1100; J1170; J1200; J1265; J1644; J1650; J1815; J1885; J1940; J2250; J2310; J2370; J2405; J2704; J2710; J2720; J3010; J3370; J3475; J3480; J3490; J7040; J7050; J7608; L3908; P9041; P9047; Q9957; Q9967